=== PATIENT | male | born 1955 | race Caucasian/White ===

== ENCOUNTER 2025-08-22 17:02 | Inpatient (IN) | payer MEDICARE, SELFPAY ==
[2025-08-22] VITALS (13 sets, daily range): BP systolic 110–155; BP diastolic 47–95; PULSE 55–78; RESP 14–21; TEMP 36.5–37.2; O2SAT 94–99; BMI 28.5; BMI 163.2; BMI 27.6; BMI 26.9
--- NOTE | 2025-08-22 17:04 | ECG_ITS ---
APPROVED REPORT Exam: Resting ECG HR:66 bpm ECG Measurements Heart Rate 66 AXES MA 205 P 42 QRSd 110 QRS 4 QT 441 T 26 QTc 455 Conclusion Inferior STEMI with elevations in 3, aVF with reciprocal changes in aVL and ST depressions in V2 V3 Electronically signed by : Opal Girard, 08/23/2025 00:01:59
--- NOTE | 2025-08-22 17:04 | ECG_ITS ---
APPROVED REPORT Exam: Resting ECG HR:64 bpm ECG Measurements Heart Rate 64 AXES MS 202 P 44 QRSd 109 QRS 33 QT 439 T 28 QTc 448 Conclusion Inferior STEMI Electronically signed by : Opal Girard, 08/23/2025 00:01:30
--- NOTE | 2025-08-22 17:12 | XR_ITS ---
FINAL REPORT CLINICAL HISTORY: Nonspecific chest pain COMPARISON: None FINDINGS: CHEST 1 VIEW There is mild cardiomegaly. The mediastinum is normal. The lungs are underinflated. There is no focal infiltrate or edema. There are no pleural effusions. There is no pneumothorax. There is no osseous abnormality. IMPRESSION: No acute cardiopulmonary process Reviewed, Interpreted and Dictated by Yoni Aguillon MD Transcribed by Kacie Smyth Authenticated and [facility]
--- NOTE | 2025-08-22 17:12 | ED_ITS ---
Discharge Plan Disposition Patient Disposition: Admitted Clinical Impressions Clinical Impression: STEMI (ST elevation myocardial infarction) Discharge ED Provider: Opal Girard General Adult HPI General Chief complaint: Chest Pain Stated complaint: chest pain Time Seen by Provider: 08/22/25 17:05 History of Present Illness HPI narrative: Patient is a 70-year-old gentleman who came to the emergency department from home with chest pain that started at 2 PM. Patient states the pain is in the center of chest, nonradiating pressure-like. States that he took a half of a normal 324 aspirin this morning and took the other half when his chest pain started. Patient states that his chest pain is currently a 9 out of 10. Patient states that he has hypertension but denies any other associated symptoms. Patient denies any shortness of breath. Patient denies any abdominal pain nausea vomiting or diarrhea. Patient states that he has not had similar symptoms in the past. Patient states that his symptoms started while mowing the grass. Patient does not take any other blood thinners. Patient has no other medical problems. Related Data Allergies Allergy/AdvReac Type Severity Reaction Status Date / Time From [facility] Allergy Intermediate HIVES, Uncoded 09/23/17 14:39 INFLAMMATION PFSH [facility] Disclaimer: The information contained in this section may have been updated after the patient was seen, as this information can be updated by other users. Social History (Updated 08/22/25 @ 19:52 by Ana Maria Allen RN) Smoking Status: Former smoker alcohol intake: never substance use type: denies use current occupational status: retired Travel in the last 8 weeks?: [place] the [place] Have you lived/traveled outside US in past 30 days?: No Contact w/someone who lives/traveled outside US past 30 days?: No Exposure to someone with infectious disease in past 14 days?: No Do you have a fever (greater than 100.4 F or 38 C)?: No Have you tested positive for COVID-19?: No Exposed to someone with COVID-19 in past 14 days?: No Do you have a sore throat?: No Do you have a cough?: No Do you have any weakness?: No Are you experiencing any nausea/vomitting?: No Do you have any diarrhea?: No Are you experiencing any unusual bleeding?: No Do you have any muscle aches/pain?: No Do you have any abdominal pain?: No Are you experiencing loss of taste or smell?: No ROS Obtained: Yes All systems reviewed & no additional complaints except as documented and Yes Systems reviewed as appropriate & no additional complaints except as documented Physical Exam General General appearance: alert and in no apparent distress Head Head exam: atraumatic, normocephalic and normal inspection Eye Eye exam: Present normal appearance, PERRL and EOMI; Absent scleral icterus ENT ENT exam: Present normal exam and normal external ear exam Neck Neck exam: Present normal inspection and full ROM Chest Chest inspection: Present normal inspection and symmetric chest wall rise Respiratory Respiratory exam: Present normal lung sounds bilaterally; Absent respiratory distress or wheezes Cardiovascular Cardiovascular exam: Present regular rate, normal rhythm and normal heart sounds Abdominal Exam Abdominal exam: Present soft and distention; Absent tenderness, guarding or rebound Extremities Exam Extremities exam: Present normal inspection and full ROM Back Exam Back exam: Present normal inspection and full ROM Neurological Exam Neurological exam: Present alert and oriented X3 Psychiatric Psychiatric exam: Present normal affect and normal mood Skin Skin exam: Present warm and dry Medical Decision Making Medical Records Medical records reviewed: Yes I reviewed the patient's medical records. Screening: Per USPSTF and CDC recommendations, given the prevalence of disease in our region, it is our hospital?s policy to screen for HIV and viral Hepatitis for all patients aged 18 and over and those with ongoing risk factors. Frankie Inquiry Pt receiving controlled substance: No Vital Signs: 08/22/25 17:07 08/22/25 17:31 Temperature 98.1 F 98.1 F Temperature Source Oral Oral Pulse Rate 65 Pulse Rate [Left] 68 Respiratory Rate 21 20 Blood Pressure 155/95 H Blood Pressure [Right Arm] 155/95 H Blood Pressure Mean [Right Arm] 115 Blood Pressure Source Automatic Cuff Blood Pressure Source [Right Arm] Automatic Cuff Blood Pressure Position Sitting Blood Pressure Position [Right Arm] Sitting 02 Sat by Pulse Oximetry 99 Oxygen Delivery Method Room Air Room Air Lab Data Lab results reviewed: Yes I reviewed the patient's lab results. Lab Results 08/22/25 17:10: WBC 8.7, RBC 4.85, Hgb 15.1, Hct 41.7 L, MCV 86.0, MCH 31.1, M CHC 36.2 H, RDW 12.1, Plt Count 331, MPV 8.2, Neut % (Auto) 65.3, Lymph % (Auto) 27.2, Harris % (Auto) 5.3, Eos % (Auto) 1.4, Baso % (Auto) 0.6, Neut # (Auto) 5.7, Lymph # (Auto) 2.4, Harris # (Auto) 0.5, Eos # (Auto) 0.1, Baso # (Auto) 0.1, S odium 133 L, Potassium 3.7, Chloride 97 L, Carbon Dioxide 26, Anion Gap 13.7, BUN 11, Creatinine 0.90, Estimated Creat Clear -24 L, Estimated GFR 83, Est GFR ( Amer) 100, Glucose 142 H, Hemoglobin A1c 5.4, Calcium 8.8, Total Bilirubin 0.6, AST 33, ALT 23, Alkaline Phosphatase 81, Troponin I 0.08 H, Total Protein 7.3, Albumin 4.5, Globulin 2.8, Albumin/Globulin Ratio 1.6, Triglycerides 125, Cholesterol 163, LDL Cholesterol Direct 103.06, VLDL Cholesterol 25, HDL Cholesterol 45, Cholesterol/HDL Ratio 3.6 H, TSH 5.76 H, HCV Ab SHANON w/Rflx PCR Qn Negative, HIV Ag/Ab Combo Qual Negative 08/22/25 17:10 08/22/25 17:10 Orders (Tests/Meds): ED MEDICATIONS Generic Name Dose Route Start Last Admin Trade Name Freq PRN Reason Stop Dose Admin Acetaminophen 650 mg 08/22/25 17:21 Acetaminophen 325mg Tab PO 09/21/25 17:20 Q4HP PRN Fever or Mild Pain (1-3) Acetaminophen 650 mg 08/22/25 18:38 Acetaminophen 325mg Tab PO 09/21/25 18:37 Q4HP PRN Fever or Mild Pain (1-3) Hydrocodone Bitart/Acetaminophen 1 tab 08/22/25 17:21 Hydrocodone/Apap 5/325 Mg Tablet PO 09/21/25 17:20 Q4HP PRN Mild to Moderate Pain (1-6) Hydrocodone Bitart/Acetaminophen 1 tab 08/22/25 18:38 Hydrocodone/Apap 5/325 Mg Tablet PO 09/21/25 18:37 Q4HP PRN Moderate Pain (4-6) Hydrocodone Bitart/Acetaminophen 2 tab 08/22/25 18:38 Hydrocodone/Apap 5/325 Mg Tablet PO 09/21/25 18:37 Q4HP PRN Severe Pain (7-10) Aspirin 324 mg 08/22/25 17:12 08/22/25 19:52 Aspirin 81mg Chewable Tablet PO 08/22/25 17:13 Not Given ONCE ONE Aspirin 81 mg 08/23/25 09:00 Aspirin Ec 81mg Tablet PO 09/22/25 08:59 DAILY IOANA Atorvastatin Calcium 40 mg 08/22/25 21:00 08/22/25 21:02 Atorvastatin 40mg Tablet PO 09/21/25 20:59 40 mg HS IOANA Administration Enoxaparin Sodium 40 mg 08/23/25 09:00 Enoxaparin 40mg/0.4ml Syringe SUBCUT 09/22/25 08:59 DAILY IOANA Fentanyl Citrate 50 mcg 08/22/25 17:14 08/22/25 18:12 Fentanyl 100mcg/2ml Vial IV 08/23/25 05:15 100 mcg Q3MINP PRN Administration Sedation Fentanyl Citrate 25 mcg 08/22/25 17:14 Fentanyl 100mcg/2ml Vial IV 08/23/25 05:15 Q3MINP PRN Sedation Flumazenil 0.2 mg 08/22/25 17:14 Flumazenil 0.1mg/Ml 5ml Vial IV 08/23/25 05:15 NEEDED PRN Sedation Heparin Sodium (Porcine) 5,000 unit 08/22/25 17:14 08/22/25 18:11 Heparin 1,000 Units/Ml 10ml Vial (High Density Tal[employer] Coater Operator) IV 08/22/25 21:15 11,600 unit NEEDED PRN Administration Emergency Box Tax Clerk Heparin Sodium/Sodium Chloride 3,000 unit 08/22/25 17:14 08/22/25 18:11 Heparin 1,000 Units/500ml Ns (High Density Talc Coater Operator) IV 08/22/25 17:15 3,000 unit ONCE ONE Administration Hydralazine HCl 20 mg 08/22/25 17:14 Hydralazine 20mg/Ml Vial IV 08/22/25 21:15 ONCE PRN sbp>160 Sodium Chloride 1,000 mls @ 25 mls/hr 08/22/25 17:15 08/22/25 19:53 Sod Chlor 0.9% 1000ml Bag IV 09/21/25 17:14 Not Given .Q25H IOANA Adenosine 180 mg/ Sodium 90 mls @ 432 mls/hr 08/22/25 17:14 Chloride IV 08/22/25 21:15 ONCE PRN fractional flow reserve 180 MCG/KG/MIN Adenosine 90 mg/ Sodium 90 mls @ 864 mls/hr 08/22/25 17:14 Chloride IV 08/22/25 21:15 ONCE PRN fractional flow reserve 180 MCG/KG/MIN Sodium Chloride 500 mls @ 25 mls/hr 08/22/25 17:15 08/22/25 19:54 Sod Chloride 0.9% 500ml Bag IV 08/23/25 17:15 Not Given .Q20H IOANA Labetalol HCl 20 mg 08/22/25 17:14 Labetalol 20mg/4ml Syringe IV 08/22/25 21:15 ONCE PRN sbp>160 Lidocaine HCl 10 ml 08/22/25 17:14 08/22/25 18:10 Lidocaine 1% 10ml Mdv IJ 08/22/25 17:15 10 ml ONCE ONE Administration Lidocaine HCl 10 ml 08/22/25 17:14 08/22/25 19:53 Lidocaine 1% 5ml Pf Vial IJ 08/22/25 17:15 Not Given ONCE ONE Midazolam HCl 1 mg 08/22/25 17:14 Midazolam 2mg/2ml Vial IV 08/23/25 05:15 Q3MINP PRN Sedation Midazolam HCl 1 mg 08/22/25 17:14 08/22/25 18:12 Midazolam Hcl 1mg/Ml 5ml Vial IV 08/23/25 05:15 5 mg Q3MINP PRN Administration Sedation Miscellaneous 1 each 08/22/25 18:38 Consider Pt For Dual Antiplatelet Therapy At Discharge-Stent NOTAPPLIC 09/21/25 18:37 NEEDED PRN Reminder for s/p stent Morphine Sulfate 4 mg 08/22/25 17:14 08/22/25 19:53 Morphine 4mg/Ml Syringe IV 08/22/25 17:15 Not Given ONCE ONE Morphine Sulfate 4 mg 08/22/25 17:21 Morphine 4mg/Ml Syringe IV 09/21/25 17:20 Q4HP PRN Severe Pain (7-10) Naloxone HCl 0.4 mg 08/22/25 17:14 Naloxone 0.4mg/Ml Vial IV 08/23/25 05:15 Q5MINP PRN Decreased Respirations Nicotine 21 mg 08/22/25 17:21 Nicotine 21mg/24hr Patch TD 09/21/25 17:20 DAILYP PRN Nicotine Cravings Nitroglycerin 0.4 mg 08/22/25 17:12 Nitroglycerin 0.4mg Sl Tablet SL 08/22/25 19:12 Q5MINP PRN Chest Pain Nitroglycerin 800 mcg 08/22/25 17:14 08/22/25 18:10 Nitroglycerin 800mcg/8ml Syr (High Density [employer] Coater Operator) IA 08/22/25 21:15 800 mcg NEEDED PRN Administration Emergency Box Tax Clerk Nitroglycerin 0.4 mg 08/22/25 18:38 Nitroglycerin 0.4mg Sl Tablet SL 09/21/25 18:37 Q5MINP PRN Chest Pain Ondansetron HCl 4 mg 08/22/25 17:14 Ondansetron 4mg/2ml Vial IV 08/23/25 05:15 NEEDED PRN Nausea Ondansetron HCl 4 mg 08/22/25 17:21 Ondansetron 4mg/2ml Vial IV 09/21/25 17:20 Q8HP PRN Nausea Pantoprazole Sodium 40 mg 08/22/25 21:00 08/22/25 21:02 Pantoprazole 40mg Tablet PO 09/21/25 20:59 40 mg HS IOANA Administration Prasugrel 10 mg 08/23/25 09:00 Prasugrel 10mg Tab PO 09/22/25 08:59 DAILY IOANA Prasugrel 60 mg 08/22/25 18:40 08/22/25 18:41 Prasugrel 10mg Tab PO 08/22/25 18:41 60 mg ONCE ONE Administration Promethazine HCl 25 mg 08/22/25 17:14 Promethazine Hcl 25mg/Ml 1ml Vial IV 08/23/25 05:15 NEEDED PRN Nausea And Vomiting Protamine Sulfate 50 mg 08/22/25 17:14 Protamine Sulfate 50mg/5ml Vial (High Density Tal[employer] Coater Operator) IV 08/22/25 21:15 ONCE PRN act>200 Sodium Chloride 10 ml 08/22/25 17:12 Sodium Chloride 0.9% 10ml Flush Syringe IV 09/21/25 17:11 NEEDED PRN Maintain IV Site Sodium Chloride 25 ml 08/22/25 17:14 08/22/25 19:53 Sodium Chloride 0.9% 25ml Bag IV 08/22/25 17:15 Not Given ONCE ONE Verapamil HCl 2.5 mg 08/22/25 17:14 08/22/25 18:11 Verapamil 2.5mg/Ml 2ml Vial IV 08/22/25 17:15 2.5 mg ONCE ONE Administration ORDERS Category Date Time Status Consult to Cardiology [CONS] Stat Cons 08/22/25 17:12 Active XR chest portable Stat Exams 08/22/25 17:12 Taken Complete Blood Count Auto Diff AMLAB Lab 08/23/25 06:00 Ordered Complete Blood Count Auto Diff Stat Lab 08/22/25 17:10 Completed Comprehensive Metabolic Panel AMLAB Lab 08/23/25 06:00 Ordered Comprehensive Metabolic Panel Stat Lab 08/22/25 17:10 Completed HIV Combo Stat Lab 08/22/25 17:10 Completed Hemoglobin A1C Stat Lab 08/22/25 17:10 Completed Hepatitis C Ab Qual. W/ RFX Stat Lab 08/22/25 17:10 Completed Lipid Panel Stat Lab 08/22/25 17:10 Completed Magnesium AMLAB Lab 08/23/25 06:00 Ordered TSH [Thyroid Stimulating Hormone] Stat Lab 08/22/25 17:10 Completed Troponin I Q3H Lab 08/22/25 20:24 Received Troponin I Q3H Lab 08/22/25 23:15 Ordered Troponin I Stat Lab 08/22/25 17:10 Completed CA echo doppler complete Routine Y 08/22/25 17:22 Ordered Medical Decision Narrative: Patient is a 70-year-old male with a past medical history of hypertension who presented to the emergency department with concern for chest pain that started around 2 PM. Patient states that his pain is in the center of his chest, nonradiating. On arrival, patient was hemodynamically stable with unremarkable vital signs. Differential includes but not limited to: ACS/OH, pneumothorax, pleural effusion, unstable angina, pneumonia, amongst others. Patient arrived, EKG was handed to me which showed inferior STEMI with ST elevations in 3 aVF with reciprocal changes in aVL as well as ST depressions in V2 and V3. The High Density Talc Coater Operator was activated, labs were obtained. Patient had already taken a full 324 of aspirin prior to arrival therefore aspirin was not given. Chest x-ray was obtained which was reviewed and interpreted by myself and showed no acute focal saltation, pneumothorax, pleural effusion or other acute cardiopulmonary process Cardiology was consulted and patient was taken emergently up to the High Density Talc Coater Operator. Critical Care Critical Care Time Critical Care Time: Yes Attestation: On 08/22/25, the high probability of a clinically significant, sudden or life threatening deterioration of the following system(s) required my full and direct attention, intervention and personal management. The time I documented below is in addition to time spent performing reported procedures but includes the following listed in this critical care notation. Total Time Total Critical Care Time: 35
[2025-08-22 17:17] LABS: Hematocrit 41.7 % (42.0-52.0); Hemoglobin 15.1 g/dL (14.1-18.0); Immature Granulocytes % 0.2 %; Mean Corpuscular HGB Conc 36.2 g/dL (31.8-35.4); Mean Corpuscular Hemoglobin 31.1 pg (27.0-31.2); Mean Corpuscular Volume 86.0 fl (80-94); Nucleated Red Blood Cells % 0 %; Platelet Count 331 K/mm3 (142-424); Red Blood Count 4.85 M/mm3 (4.60-6.20); Red Cell Distribution Width-SD 38.0 fL; White Blood Count 8.7 K/mm3 (4.8-10.8)
--- NOTE | 2025-08-22 17:17 | IR_ITS ---
APPROVED REPORT Patient Location: Emergent Software Installation Engineer: WINTER Del Toro RT (R) PROCEDURES Left heart catheterization Left ventriculogram Selective coronary angiogram Mechanical thrombectomy through the proximal circumflex artery and mid circumflex artery Drug-eluting stent deployment to the proximal and mid dominant circumflex artery Drug-eluting stent deployment to the second obtuse marginal artery INDICATION Acute inferior lateral ST elevation myocardial infarction, Coronary artery disease Informed consent was obtained prior to the procedure. COMPLICATIONS None Estimated Blood Loss: Less than 10mls TECHNIQUE One percent lidocaine used to anesthetize the right anterior aspect of the wrist. The right radial artery was accessed via the Seldinger technique. A 6 Chinese sheath was placed in the right radial artery. 2.5 mg of Verapamil, 800 mcg of nitroglycerin, 1mg Lidocaine and 5000 U Heparin were given through the arterial sheath. The JL3 catheter was also used to perform left heart catheterization, left ventriculogram and selective coronary angiogram. At the end the diagnostic angiogram therapeutic heparin had already been administered and the guide catheter was placed in the left main artery followed by Choice PT extra-support wire placed distally in the circumflex artery. A [employer] ([employer] united) mechanical aspiration catheter was used to aspirate a large thrombus thereby restoring AMBREEN-3 flow. A 3.5 x 12 mm [place] frontier stent was placed in the ostial proximal segment and deployed at 20 kai. The wire was placed in the second obtuse marginal artery and a 2.5 x 20 mm balloon was used to predilate going into the second obtuse marginal artery and mid circumflex artery. Following this a 2.5 x 26 mm [place] frontier stent was placed in the second obtuse marginal artery extending back into the mid circumflex artery. A 3 mm x 26 mm Delvis frontier stent was placed distal to the 3.5 mm stent yet still overlapping and extending into the 2.5 mm stent and deployed at 20 kai. A 3.5 x 12 mm noncompliant balloon was deployed at 20 kai in the ostial proximal and midportion of the circumflex artery. AMBREEN 0 flow was present at the beginning of the procedure with AMBREEN-3 flow at the end of the procedure. At the end of procedure the apparatus was removed the sheath was removed and hemostasis was achieved using TR banding patient was transferred to the postop porting in stable condition ANGIOGRAPHIC RESULTS The left main artery Normal The left anterior descending artery Has proximal 20 to 30% stenosis with mid vessel 20% stenosis The circumflex artery Large dominant initially ostially occluded. Following revascularization the proximal circumflex artery was widely patent and gave rise to a large caliber first obtuse marginal artery. The first obtuse marginal artery had mid vessel 40% stenoses. Distal to the obtuse marginal artery the circumflex artery had 90% stenosis. Following revascularization the mid circumflex artery is widely patent and patent into a medium to large second obtuse marginal artery The right coronary artery Is nondominant yet still large and has an anterior anomalous takeoff and has a proximal 70% stenosis followed by mid vessel 70% stenosis The HERNANDEZ ventriculogram reveals Reduced at 40% The left ventricular end-diastolic pressure 25 mmHg IMPRESSION Acute inferolateral ST elevation myocardial infarction as described above Successful mechanical thrombectomy followed by drug-eluting stent deployment to the ostial proximal mid dominant circumflex artery with additional stenting into a large second obtuse marginal artery Persistent severe stenosis in the large right coronary artery with an anterior takeoff Reduced ejection fraction Elevated LVEDP PLAN 1. Effient and aspirin 2. LDL less than 55 to be achieved with high intensity statin 3. Maintain continuous telemetry for at least 48 hours 4. Official echocardiogram in the morning and usage of LifeVest if applicable 5. Patient will be brought back to the Pediatric Cardiologist in 2 to 4 weeks and undergo stenting of the right coronary artery. 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 Entresto once hemodynamically stable Electronically signed by : Roberto Pedroza MD 08/22/2025 18:18:53
--- NOTE | 2025-08-22 17:17 | PC.NURSE ---
STEMI alert called at 1709 per .
--- NOTE | 2025-08-22 17:18 | PC.NURSE ---
pt taken to ammunition assembly ii laborer
--- NOTE | 2025-08-22 17:21 | P.HP_ITS ---
History of Present Illness *Admission Date: 08/22/25 *Reason for visit:: chest pain, SOA *History of present illness: Mr. Rosales is a 70-year-old male with history of hypertension but no longer needing meds due to improvement in blood pressure after retiring. States he otherwise only takes a daily aspirin. Says approximately 2 PM this afternoon he developed onset of chest pressure, shortness of breath, pain in both his arms radiating down his arms. Became nauseous and developed flushing and felt really hot and sweaty. Came to the ER for evaluation where EKG obtained showed acute STEMI. Labs obtained but [facility] [employer] urgently activated. Taken to [facility] [employer] for intervention. Found to have occlusion of ostial circumflex. Received 3 stents. Medicine consulted for admission Reports improvement in chest pain after intervention. Stable on room air. Blood pressure doing better with systolics in the 120s to 140s. Family at bedside. [facility] Disclaimer: The information contained in this section may have been updated after the patient was seen, as this information can be updated by other users. Social History (Updated 08/22/25 @ 19:37 by Danny Alberts MD) Smoking Status: Former smoker alcohol intake: never substance use type: denies use current occupational status: retired Travel in the last 8 weeks?: Inside the [place] Review of Systems Review of Systems Review of systems (narrative): 14 point review of systems performed, pertinent positives and negatives as per HPI Meds Home Medications and Allergies New Prescriptions to Start Prescriptions: Allergies Allergy/AdvReac Type Severity Reaction Status Date / Time From BACTRIM DS Allergy Intermediate HIVES, Uncoded 09/23/17 14:39 INFLAMMATION Exam Data for Last 24 hours Vital signs and Labs for Last 24 Hours: Temp Pulse Resp BP Pulse Ox O2 Del Method 98.1 F 68 21 155/95 H 99 Room Air 08/22/25 17:07 08/22/25 17:07 08/22/25 17:07 08/22/25 17:07 08/22/25 17:07 08/22/25 17:07 I & O for Last 24 hours: Intake & Output 08/19/25 08/20/25 08/21/25 08/22/25 23:59 23:59 23:59 23:59 Weight 80 kg Constitutional Constitutional: no acute distress, average body habitus and cooperative *Routine HEENT Exam Head: Present normocephalic Eye: Present EOMI and PERRL ENT: Present mucous membranes moist *Routine Neck Exam Neck: Present supple; Absent lymphadenopathy *Routine Respiratory Exam Respiratory: Present CTA bilaterally *Routine Cardiovascular Exam Cardiovascular: Present RRR *Routine Abdominal Exam Abdominal: Present soft and normoactive bowel sounds; Absent tenderness *Routine Rectal Exam Rectal:: deferred *Routine Genitalia Exam Genitalia:: deferred *Routine Extremities Exam Extremities: Present edema (Trace in the ankles); Absent cyanosis or clubbing Comments: Compression bracelet on right wrist *Routine Skin Exam Skin: Present warm; Absent rash *Routine Neurological Exam Neurological: Present alert, oriented X3 and moving all extremities; Absent altered mental status Assessment and Plan *Assessment and plan (1) STEMI (ST elevation myocardial infarction): Status: Acute Category: Medical Code(s): I21.3 - ST elevation (STEMI) myocardial infarction of unspecified site Plan 1-year-old male with history of hypertension that is resolved after fdc. On no medications at this time. Presented with chest pain. Found to be having a STEMI. Was taken urgently to the [facility] [employer]. Discussed case with ER physician and cardiology. Patient found to have occluded circumflex. Stents placed in occlusion resolved. Necessitating inpatient care. Cardiology requested admission for monitoring for 48 hours after STEMI. I decided to admit to medicine with telemetry. Patient alert and oriented. Feeling better with no chest pain at this time. Problems addressed as follows: STEMI, type I Hyperlipidemia - Initial troponin 0.08. TSH 5.76. Cholesterol with LDL of 103, goal less than 55. - A1c normal at 5.4 - Kidney function normal with BUN 11, creatinine 0.9 - Repeat CBC, CMP, magnesium ordered for the morning - Initiated on aspirin 81 mg daily after 324 mg load in the ER, loaded with prasugrel 60, continue 10 mg daily. Initiate Lipitor 40 mg nightly - Blood pressure normal at this time, will obtain echocardiogram in the morning and consider GDMT pending heart function. - Cardiology consulted and assisting with care. Discussed case after heart cath, patient was found to have occluded circumflex. Clot was removed and 3 stents placed. EF looked normal on ventriculogram. - My review of EKG shows ST elevation in leads II and III with depressions in V2 through V4 Full code Cardiac diet Heparinized in [employer]; initiate Lovenox 40 mg subcu daily in the morning
[2025-08-22 17:57] LABS: Albumin Level 4.5 g/dl (3.5-5.0); Chloride 97 mmol/L (98-107)
[2025-08-22 17:58] LABS: Potassium 3.7 mmoL/L (3.5-5.1); Sodium 133 mmol/L (136-145)
[2025-08-22 18:00] LABS: Alanine Aminotransferase 23 U/L (12-78); Anion Gap 13.7 mEq/L (5-15); Aspartate Amino Transferase 33 U/L (17-59); Blood Urea Nitrogen 11 mg/dl (9-20); Carbon Dioxide 26 mmol/L (22.0-30.0); Creatinine Clearance Estimated -24 mL/min (50-200); Creatinine,Serum 0.90 mg/dl (0.66-1.25); Estimated Glomerular Filt Rate 83 ml/min (>60); GFR (African American) 100 ML/MIN (>60)
[2025-08-22 18:01] LABS: Albumin/Globulin Ratio 1.6 (1.1-1.8); Alkaline Phosphatase 81 U/L (38-126); Bilirubin,Total 0.6 mg/dl (0.2-1.3); Calcium 8.8 mg/dl (8.4-10.2); Cholesterol 163 mg/dl (140-200); Globulin 2.8 g/dL (1.3-3.2); Glucose 142 mg/dl (74-100); HDL Cholesterol 45 mg/dl (40-60); Total Protein,Serum 7.3 g/dl (6.3-8.2); Triglycerides 125 mg/dl (30-150)
[2025-08-22] MEDS: LIDOCAINE 1% 10ML MDV 10 ML IJ (18:10)
[2025-08-22] MEDS: NITROGLYCERIN 800MCG/8ML SYR (CATH LAB) 800 MCG IA (18:10)
[2025-08-22] MEDS: HEPARIN 1,000 UNITS/ML 10ML VIAL (CATH LAB) 5000 UNIT IV (18:11)
[2025-08-22] MEDS: VERAPAMIL 2.5MG/ML 2ML VIAL 2.5 MG IV (18:11)
[2025-08-22] MEDS: HEPARIN 1,000 UNITS/500ML NS (CATH LAB) 3000 UNIT IV (18:11)
[2025-08-22] MEDS: FENTANYL 100MCG/2ML VIAL 50 MCG IV (18:12)
[2025-08-22] MEDS: MIDAZOLAM HCL 1MG/ML 5ML VIAL 1 MG IV (18:12)
[2025-08-22 18:15] LABS: Troponin I 0.08 ng/ml (0.00-0.034)
--- NOTE | 2025-08-22 18:25 | PC.NURSE ---
arrived by deniser from carpenter/labor
[2025-08-22 18:31] LABS: Hemoglobin A1C 5.4 % (4.0-6.0); Thyroid Stimulating Hormone 5.76 uIU/mL (0.465-4.68)
[2025-08-22] MEDS: PRASUGREL 10MG TAB 60 MG PO (18:41)
[2025-08-22 18:51] LABS: Hepatitis C Ab Qual. W/ RFX NEGATIVE (Negative)
[2025-08-22] MEDS: ATORVASTATIN 40MG TABLET 40 MG PO (21:02)
[2025-08-22] MEDS: PANTOPRAZOLE 40MG TABLET 40 MG PO (21:02)
[2025-08-22 21:31] LABS: Troponin I 2.49 ng/ml (0.00-0.034)
--- NOTE | 2025-08-22 22:18 | PC.NURSE ---
Patient left floor with staff for ICU at 22:16.
[2025-08-22] MEDS: AMIODARONE HCL 150 MG in DEXTROSE 5 % IN WATER 100 ML 618 MG IV (22:29)
--- NOTE | 2025-08-22 22:33 | PC.NURSE ---
[facility] @22:20
[2025-08-22] MEDS: AMIODARONE HCL 900 MG in DEXTROSE 5 % IN WATER 500 ML 34.53 MG IV (22:45)
--- NOTE | 2025-08-22 23:18 | ECG_ITS ---
APPROVED REPORT Exam: Resting ECG HR:55 bpm ECG Measurements Heart Rate 55 AXES SD 269 P 246 QRSd 106 QRS -49 QT 462 T 90 QTc 450 Conclusion Normal Sinus rhythm INDETERMINATE AXIS NONSPECIFIC ST & T-WAVE ABNORMALITY ABNORMAL ECG UNCONFIRMED REPORT Electronically signed by : Jose Peraza MD 08/23/2025 15:06:31
--- NOTE | 2025-08-22 23:19 | PC.NURSE ---
While amio bolus was infusing @ 2235, pt had wide complex run on tele. Pt asymptomatic. Bolus rate decreased to 300 ml/hr. (Per Angelia PRINGLE, if pt has any issues with bolus, decrease rate). Bolus finished and maint. gtt started @2244. Shortly after, pts came out of room and stated pt had been having slight chest pain since medication was started. Hospitalist notified. States to contact Dr. Pedroza. Dr. Pedroza paged and called back. Notified of events/VS States most likely reperfusion pain. Order received for Dilaudid 1mg IV Q 30 min PRN chest pain.
[2025-08-23] VITALS (23 sets, daily range): BP systolic 101–133; BP diastolic 51–90; PULSE 50–72; RESP 11–23; TEMP 36.4–37; O2SAT 95–99; BMI 26.9
--- NOTE | 2025-08-23 00:28 | PC.NURSE ---
@2340 Pts HR dropped to 40's. Angelia PRINGLE in unit and saw pts HR. Verbal order given to stop amio gtt.
[2025-08-23] MEDS: FAMOTIDINE 20MG TABLET 20 MG PO (01:34)
--- NOTE | 2025-08-23 01:38 | PC.NURSE ---
pt c/o heart burn. states it is burning in his esophagus. states he has this same burning all of the time for which he takes pepcid. Pt informed that he did have protonix earlier in this shift. States that does not work for him. Pt requesting pepcid. Angelia RPINGLE notified.
[2025-08-23 05:41] LABS: Hematocrit 37.2 % (42.0-52.0); Immature Granulocytes % 0.4 %; Mean Corpuscular HGB Conc 35.8 g/dL (31.8-35.4); Mean Corpuscular Hemoglobin 30.8 pg (27.0-31.2); Mean Corpuscular Volume 86.1 fl (80-94); Nucleated Red Blood Cells % 0 %; Platelet Count 280 K/mm3 (142-424); Red Blood Count 4.32 M/mm3 (4.60-6.20); Red Cell Distribution Width-SD 38.5 fL; White Blood Count 8.5 K/mm3 (4.8-10.8)
[2025-08-23 05:50] LABS: Alanine Aminotransferase 26 U/L (12-78); Albumin Level 3.9 g/dl (3.5-5.0); Albumin/Globulin Ratio 1.8 (1.1-1.8); Alkaline Phosphatase 74 U/L (38-126); Anion Gap 9.4 mEq/L (5-15); Aspartate Amino Transferase 92 U/L (17-59); Bilirubin,Total 0.7 mg/dl (0.2-1.3); Blood Urea Nitrogen 10 mg/dl (9-20); Calcium 8.8 mg/dl (8.4-10.2); Carbon Dioxide 26 mmol/L (22.0-30.0); Chloride 98 mmol/L (98-107); Creatinine Clearance Estimated 85 mL/min (50-200); Creatinine,Serum 0.90 mg/dl (0.66-1.25); Estimated Glomerular Filt Rate 83 ml/min (>60); GFR (African American) 100 ML/MIN (>60); Globulin 2.2 g/dL (1.3-3.2); Glucose 115 mg/dl (74-100); Magnesium 2.6 mg/dl (1.6-2.3); Potassium 3.4 mmoL/L (3.5-5.1); Sodium 130 mmol/L (136-145); Total Protein,Serum 6.1 g/dl (6.3-8.2)
--- NOTE | 2025-08-23 05:56 | PC.NURSE ---
Notified Angelia PRINGLE of pts HR frequently dropping to the 40's while sleeping and awake, and pts BP being slightly low. (see VS) Pt asymptomatic. She spoke with Dr Pedroza about this. no new orders
[2025-08-23 06:49] LABS: Hemoglobin 13.3 g/dL (14.1-18.0)
--- NOTE | 2025-08-23 07:57 | P.PN_ITS ---
Subjective *Date: 08/23/25 *Time: 07:57 Interval history: Patient states he did well during the night. He denies any chest discomfort or shortness of breath. He was able to sleep a little. He did eat breakfast without any problems. Nursing states he had a run of V. tach?. He was briefly on an amiodarone drip which caused chest discomfort and it was discontinued. He has remained in sinus bradycardia. Cardiac cath results completed 08/22/2025 as follows: IMPRESSION Acute inferolateral ST elevation myocardial infarction as described above Successful mechanical thrombectomy followed by drug-eluting stent deployment to the ostial proximal mid dominant circumflex artery with additional stenting into a large second obtuse marginal artery Persistent severe stenosis in the large right coronary artery with an anterior takeoff Reduced ejection fraction Elevated LVEDP PLAN 1. Effient and aspirin 2. LDL less than 55 to be achieved with high intensity statin 3. Maintain continuous telemetry for at least 48 hours 4. Official echocardiogram in the morning and usage of LifeVest if applicable 5. Patient will be brought back to the [facility] in 2 to 4 weeks and undergo stenting of the right coronary artery. 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 Entresto once hemodynamically stable To note also patient has done well at home. He was scheduled for an office visit today in [facility] for checkup. He has not been in the office for several years due to the fact that he has been very healthy and felt good.. He states his blood pressure normalized after retiring from [facility] at which time he stopped taking blood pressure medicine. He lost weight after COVID. He walks about a mile a day without issues. Exam Data for Last 24 hours Vital signs and Labs for Last 24 Hours: Temp Pulse Resp BP Pulse Ox O2 Del Method 98.6 F 53 L 13 113/69 96 Room Air 08/23/25 00:00 08/23/25 07:01 08/23/25 07:01 08/23/25 07:01 08/23/25 07:01 08/23/25 07:01 Laboratory Results - last 24 hr 08/22/25 17:10: WBC 8.7, RBC 4.85, Hgb 15.1, Hct 41.7 L, MCV 86.0, MCH 31.1, MCHC 36.2 H, RDW 12.1, Plt Count 331, MPV 8.2, Neut % (Auto) 65.3, Lymph % (Auto) 27.2, Stevens % (Auto) 5.3, Eos % (Auto) 1.4, Baso % (Auto) 0.6, Neut # (Auto) 5.7, Lymph # (Auto) 2.4, Stevens # (Auto) 0.5, Eos # (Auto) 0.1, Baso # (Auto) 0.1, Sodium 133 L, Potassium 3.7, Chloride 97 L, Carbon Dioxide 26, Anion Gap 13.7, BUN 11, Creatinine 0.90, Estimated Creat Clear -24 L, Estimated GFR 83, Est GFR ( Amer) 100, Glucose 142 H, Hemoglobin A1c 5.4, Calcium 8.8, Total Bilirubin 0.6, AST 33, ALT 23, Alkaline Phosphatase 81, Troponin I 0.08 H, Total Protein 7.3, Albumin 4.5, Globulin 2.8, Albumin/Globulin Ratio 1.6, Triglycerides 125, Cholesterol 163, LDL Cholesterol Direct 103.06, VLDL Cholesterol 25, HDL Cholesterol 45, Cholesterol/HDL Ratio 3.6 H, TSH 5.76 H, HCV Ab SHANON w/Rflx PCR Qn Negative, HIV Ag/Ab Combo Qual Negative 08/22/25 20:24: Troponin I 2.49 H 08/23/25 04:55: WBC 8.5, RBC 4.32 L, Hgb 13.3 L D, Hct 37.2 L, MCV 86.1, MCH 30.8, MCHC 35.8 H, RDW 12.2, Plt Count 280, MPV 8.7, Neut % (Auto) 66.8, Lymph % (Auto) 23.4, Stevens % (Auto) 7.3, Eos % (Auto) 1.5, Baso % (Auto) 0.6, Neut # (Auto) 5.7, Lymph # (Auto) 2.0, Stevens # (Auto) 0.6, Eos # (Auto) 0.1, Baso # (Auto) 0.1, Sodium 130 L, Potassium 3.4 L, Chloride 98, Carbon Dioxide 26, Anion Gap 9.4, BUN 10, Creatinine 0.90, Estimated Creat Clear 85, Estimated GFR 83, Est GFR ( Amer) 100, Glucose 115 H, Calcium 8.8, Magnesium 2.6 H, Total Bilirubin 0.7, AST 92 H D, ALT 26, Alkaline Phosphatase 74, Total Protein 6.1 L, Albumin 3.9 D, Globulin 2.2, Albumin/Globulin Ratio 1.8 I & O for Last 24 hours: Intake & Output 08/20/25 08/21/25 08/22/25 08/23/25 11:59 11:59 11:59 11:59 Intake Total 411.031 / 411.031 Output Total 200 / 200 Balance 211.031 / 211.031 Weight 199 lb 0.004 oz Constitutional Constitutional: no acute distress Comments: Sitting up in the bed and appears comfortable. is at bedside. *Routine Respiratory Exam Respiratory: Present CTA bilaterally (Anteriorly and posteriorly) *Routine Cardiovascular Exam Cardiovascular: Present RRR (Monitor showing sinus bradycardia in the 50s and sometimes low 60s) *Routine Abdominal Exam Abdominal: Present soft and normoactive bowel sounds; Absent tenderness or distended *Routine Extremities Exam Extremities: Present pulses intact; Absent edema or calf tenderness *Routine Neurological Exam Neurological: Present alert and oriented X3 Assessment and Plan *Assessment and plan (1) STEMI (ST elevation myocardial infarction): Status: Acute Category: Medical Code(s): I21.3 - ST elevation (STEMI) myocardial infarction of unspecified site (2) Hypokalemia: Status: Acute Category: Medical Code(s): E87.6 - Hypokalemia (3) Hypothyroidism: Status: Acute Category: Medical Code(s): E03.9 - Hypothyroidism, unspecified (4) Stented coronary artery: Status: Acute Category: Surgical Code(s): Z95.5 - Presence of coronary angioplasty implant and graft (5) Cardiac dysrhythmia: Status: Acute Category: Medical Code(s): I49.9 - Cardiac arrhythmia, unspecified Plan Echocardiogram was completed this morning. With pending results. Cardiology will see patient as well. Blood chemistries do show potassium of 3.4 with a low sodium of 130. Will add p.o. potassium to medicines. TSH is also noted to be slightly elevated at 5.76. Will start low-dose of levothyroxine. Also to note cholesterol profile: LDL is 103.06 with triglycerides of 125 and HDL of 45. A1c was 5.4 on admission.
[2025-08-23] MEDS: IOPAMIDOL-370 (76%);100ML BOTTLE 160 ML IV (08:15)
[2025-08-23] MEDS: LEVOTHYROXINE 25MCG (0.025MG) TAB 25 MCG PO (08:55)
[2025-08-23] MEDS: PRASUGREL 10MG TAB 10 MG PO (08:56)
[2025-08-23] MEDS: ASPIRIN EC 81MG TABLET 81 MG PO (08:56)
[2025-08-23] MEDS: POTASSIUM CHLORIDE 20MEQ TAB 20 MEQ PO ×3 (08:56→20:52)
--- NOTE | 2025-08-23 11:09 | EXP.CARD.CON ---
History of Present Illness History of Present Illness Consult date: 08/23/25 Requesting physician: Pia Allen Chief complaint: Chest pain, STEMI History of present illness: Papito Rosales is a 70-year-old white male who presented to emergency department yesterday with a STEMI. Patient reports he was at home and developed midsternal chest pressure, shortness of breath and pain radiating to both arms. He also became nauseated and diaphoretic. Patient was brought to the emergency department and went directly to the [facility] Design Engineer for STEMI. Patient was found to have occlusion of the ostial circumflex and received 3 drug-eluting stents. This morning patient is resting comfortably and denies any further episodes of chest pain or shortness of breath. Echo is pending. [facility] Disclaimer: The information contained in this section may have been updated after the patient was seen, as this information can be updated by other users. Social History (Updated 08/22/25 @ 19:52 by Ana Maria Allen RN) Smoking Status: Former smoker alcohol intake: never substance use type: denies use current occupational status: retired Travel in the last 8 weeks?: Inside the [place] Have you lived/traveled outside US in past 30 days?: No Contact w/someone who lives/traveled outside US past 30 days?: No Exposure to someone with infectious disease in past 14 days?: No Do you have a fever (greater than 100.4 F or 38 C)?: No Have you tested positive for COVID-19?: No Exposed to someone with COVID-19 in past 14 days?: No Do you have a sore throat?: No Do you have a cough?: No Do you have any weakness?: No Are you experiencing any nausea/vomitting?: No Do you have any diarrhea?: No Are you experiencing any unusual bleeding?: No Do you have any muscle aches/pain?: No Do you have any abdominal pain?: No Are you experiencing loss of taste or smell?: No Review of Systems Review of Systems Review of systems:: pertinent systems reviewed and negative unless documented below Constitutional Constitutional: Reports system reviewed and no additional complaints, except as documented *Cardiovascular Cardiovascular: Reports system reviewed and no additional complaints, except as documented and Reports chest pain *Respiratory Respiratory: Reports system reviewed and no additional complaints, except as documented *Gastrointestinal Gastrointestinal: Reports system reviewed and no additional complaints, except as documented *Neurologic Neurologic: Reports system reviewed and no additional complaints, except as documented and Denies confusion Psychiatric Psychiatric: Reports system reviewed and no additional complaints, except as documented and Denies confusion Exam Data for Last 24 hours Vital signs and Labs for Last 24 Hours: Temp Pulse Resp BP Pulse Ox O2 Del Method 97.6 F 58 L 12 112/71 98 Room Air 08/23/25 08:00 08/23/25 10:00 08/23/25 10:00 08/23/25 10:00 08/23/25 10:00 08/23/25 10:00 Laboratory Results - last 24 hr 08/22/25 17:10: WBC 8.7, RBC 4.85, Hgb 15.1, Hct 41.7 L, MCV 86.0, MCH 31.1, MCHC 36.2 H, RDW 12.1, Plt Count 331, MPV 8.2, Neut % (Auto) 65.3, Lymph % (Auto) 27.2, [place] % (Auto) 5.3, Eos % (Auto) 1.4, Baso % (Auto) 0.6, Neut # (Auto) 5.7, Lymph # (Auto) 2.4, [place] # (Auto) 0.5, Eos # (Auto) 0.1, Baso # (Auto) 0.1, Sodium 133 L, Potassium 3.7, Chloride 97 L, Carbon Dioxide 26, Anion Gap 13.7, BUN 11, Creatinine 0.90, Estimated Creat Clear -24 L, Estimated GFR 83, Est GFR ( Amer) 100, Glucose 142 H, Hemoglobin A1c 5.4, Calcium 8.8, Total Bilirubin 0.6, AST 33, ALT 23, Alkaline Phosphatase 81, Troponin I 0.08 H, Total Protein 7.3, Albumin 4.5, Globulin 2.8, Albumin/Globulin Ratio 1.6, Triglycerides 125, Cholesterol 163, LDL Cholesterol Direct 103.06, VLDL Cholesterol 25, HDL Cholesterol 45, Cholesterol/HDL Ratio 3.6 H, TSH 5.76 H, HCV Ab SHANON w/Rflx PCR Qn Negative, HIV Ag/Ab Combo Qual Negative 08/22/25 20:24: Troponin I 2.49 H 08/23/25 04:55: WBC 8.5, RBC 4.32 L, Hgb 13.3 L D, Hct 37.2 L, MCV 86.1, MCH 30.8, MCHC 35.8 H, RDW 12.2, Plt Count 280, MPV 8.7, Neut % (Auto) 66.8, Lymph % (Auto) 23.4, [place] % (Auto) 7.3, Eos % (Auto) 1.5, Baso % (Auto) 0.6, Neut # (Auto) 5.7, Lymph # (Auto) 2.0, [place] # (Auto) 0.6, Eos # (Auto) 0.1, Baso # (Auto) 0.1, Sodium 130 L, Potassium 3.4 L, Chloride 98, Carbon Dioxide 26, Anion Gap 9.4, BUN 10, Creatinine 0.90, Estimated Creat Clear 85, Estimated GFR 83, Est GFR ( Amer) 100, Glucose 115 H, Calcium 8.8, Magnesium 2.6 H, Total Bilirubin 0.7, AST 92 H D, ALT 26, Alkaline Phosphatase 74, Total Protein 6.1 L, Albumin 3.9 D, Globulin 2.2, Albumin/Globulin Ratio 1.8 I & O for Last 24 hours: Intake & Output 08/20/25 08/21/25 08/22/25 08/23/25 23:59 23:59 23:59 23:59 Intake Total 103.0 / 103.0 308.031 / 308.031 Output Total 500 / 500 Balance 103.0 / 103.0 -191.969 / -191.969 Weight 199 lb 198 lb 3 oz Constitutional Constitutional: no acute distress *Routine Respiratory Exam Respiratory: Present CTA bilaterally and symmetric chest movement *Routine Cardiovascular Exam Cardiovascular: Present RRR, Normal S1 and Normal S2 *Routine Abdominal Exam Abdominal: Present soft and normoactive bowel sounds; Absent tenderness *Routine Extremities Exam Extremities: Present full ROM and normal capillary refill; Absent edema *Routine Skin Exam Skin: Present intact, dry and warm Detailed Neck Exam: Thyroids Thyroid: Absent bruit Meds Home Medications and Allergies Home Medications ?Medication ?Instructions ?Recorded ?Confirmed ?Type aspirin 81 mg tablet 81 mg PO DAILY 08/23/25 08/23/25 History New Prescriptions to Start Prescriptions: Allergies Allergy/AdvReac Type Severity Reaction Status Date / Time sulfamethoxazole (From Allergy Hives Verified 08/23/25 07:27 Bactrim) trimethoprim (From Bactrim) Allergy Hives Verified 08/23/25 07:27 Assessment and Plan *Assessment and plan (1) Stented coronary artery: Status: Acute Category: Surgical Code(s): Z95.5 - Presence of coronary angioplasty implant and graft (2) STEMI (ST elevation myocardial infarction): Status: Acute Category: Medical Code(s): I21.3 - ST elevation (STEMI) myocardial infarction of unspecified site Plan Coronary artery disease Status post STEMI Status post thrombectomy and 3 TRESA to ostial proximal mid dominant circumflex artery with additional stenting into a large second obtuse marginal artery. Persistent severe stenosis in large right coronary artery is present. Patient will need to return to the [facility] Design [facility] in 2 to 4 weeks and undergo stenting of the right coronary artery. Echo pending Continue DAPT therapy with Effient and aspirin LDL goal less than 55, LDL is 103. Start high-dose statin A1c is 5.4 Patient is a non-smoker CV summary 08/23/2025: Patient will need to be monitored for 48 hours status post STEMI. Echo is pending. Patient can be moved to [facility] with telemetry after echo report.
--- NOTE | 2025-08-23 15:00 | PC.NURSE ---
Caty Olmedo states patient can be Medical Surgical status with Tele. Continuation of care plan.
--- NOTE | 2025-08-23 15:50 | PC.NURSE ---
pastry supervisor, Seema, states she spoke with Dr. Allen and states he said the patient may be Medical Surgical status with Tele. Continuation of care plan.
--- NOTE | 2025-08-23 17:22 | CA_ITS ---
APPROVED REPORT EXAM: Comprehensive 2D, Doppler, and color-flow Echocardiogram Automotive Assembler: Virginie Perez CRT Ht: 6 ft 0 in Wt: 195lbs BSA: 2.11 BP: 155/95 mmHg Indications: Chest Pain, Shortness of Breath, STEMI, 3 stents thrombectomy 2D Dimensions LA Volume 58.70 mL LA Volume Index 27.20 mL/m2 (M/F) 16-34 M-Mode Dimensions RVDd 2.15 cm (0.9-2.6) LA Diam 4.76 cm (1.9-4.0) LVDd 5.06 cm (3.5-5.7) LVDs 3.25 cm (3.5-5.7) IVSd 1.52 cm (0.6-1.1) PWd 0.70 cm (0.6-1.1) EF (Teich) 65.00% FS 35.80% EDV (Teich) 121.60 mL ESV (Teich) 42.50 mL LV Diastology E Decel Time 190 (160-240 msec) E/A Ratio 0.89 MED A' 14.30 cm/s LAT A' 10.00 cm/s Aortic Valve AO Peak GR. 4.80 mmHg Mitral Valve MV E Max Yunior. 73.0 (40-130 cm/s) MV A Velocity 82.0 (40-130 cm/s) E/A Ratio 0.89 MV PHT 56.0 ms Pulmonary Valve PV Peak Velocity 139.0 (50-150 cm/s) Tricuspid Valve TR P. Velocity 242.00 cm/s RAP Estimate 10.00 mmHg RVSP 33.40 mmHg Left Ventricle The left ventricle is normal size. Left ventricular systolic function is normal. The left ventricular ejection fraction is within the normal range. There is increased left ventricular wall thickness. There is normal LV segmental wall motion. The left ventricular diastolic function is normal. LVEF is 60% Right Ventricle The right ventricle is mildly dilated. The right ventricular systolic function is normal. Atria Left atrium is mildly dilated. Right atrium is mildly dilated. There is no color Doppler evidence of interatrial shunt. Aortic Valve The aortic valve is mildly thickened. There is no hemodynamically significant aortic valvular stenosis. No aortic regurgitation is present. Mitral Valve The mitral valve is normal in structure. No evidence of mitral valve stenosis. Mild mitral regurgitation is present. Tricuspid Valve The tricuspid valve leaflets are thin and pliable. Mild tricuspid regurgitation. RVSP is 20-25 mmHg. Pulmonic Valve The pulmonary valve is grossly normal in structure. Trace pulmonic valve regurgitation is present. Great Vessels The aortic root is normal in size. IVC is normal in size and collapses >50% with inspiration. Pericardium There is no pericardial effusion. Other Information Study Quality: Fair Conclusion Normal biventricular systolic function. Mild RV dilation. Mild biatrial dilation. Mild MR, mild TR. Electronically signed by : Stephanie Guallpa MD 08/23/2025 11:51:08
--- NOTE | 2025-08-23 17:51 | PC.NURSE ---
Report given to GREGORY Manriquez.
--- NOTE | 2025-08-23 17:55 | PC.NURSE ---
Patient transported to Medical Surgical Room 214 via wheelchair by Medical Surgical SRNA.
--- NOTE | 2025-08-23 17:57 | PC.NURSE ---
arrived by w/c from ICU
[2025-08-23] MEDS: PANTOPRAZOLE 40MG TABLET 40 MG PO (20:52)
[2025-08-23] MEDS: ATORVASTATIN 40MG TABLET 40 MG PO (20:52)
[2025-08-24] VITALS: BP 124/71; PULSE 60; PULSE 63; RESP 18; TEMP 36.8; O2SAT 96
[2025-08-24 04:00] VITALS: BP 112/75; PULSE 63; PULSE 70; RESP 15; TEMP 36.6; O2SAT 95; BMI 27.3
--- NOTE | 2025-08-24 04:00 | PC.NURSE ---
Patient is pleasantly alert and oriented x4. He was observed to be resting in bed with eyes closed, respirations even and unlabored on room air, and no apparent distress throughout the majority of the night. His has remained at bedside. Patient has not had any complaints of chest pain, general or localized pain, shortness of breath, dizziness, nausea, etc. this shift. Upon assessment, he stated that he feels much better. Right radial cath site was assessed; dressing remains clean, dry, and intact. Patient denies any pain surrounding the cath site. On continuous cardiac monitoring. Physical assessment was performed appropriately (see nursing shift biophysical intervention) for this shift. Scheduled medications were administered per DEC. He ambulates independently in his room/to the bathroom without difficulties. Vital signs stable. At this time, the patient remains resting in bed without any new needs vocalized. No acute changes noted thus far. Call light within reach.
[2025-08-24] MEDS: LEVOTHYROXINE 25MCG (0.025MG) TAB 25 MCG PO (06:32)
[2025-08-24 08:00] VITALS: BP 129/68; PULSE 69; PULSE 80; RESP 16; TEMP 36.6; O2SAT 99
--- NOTE | 2025-08-24 08:23 | EXP.ACUTE.PN ---
Subjective *Date: 08/24/25 *Time: 08:23 Interval history: Patient is feeling better today. He denies any chest pain or SOA. He slept off and on. He is eating breakfast this am. Medical Exam Vital signs and Labs for Last 24 Hours: Vital Signs Temp Pulse Pulse Resp BP BP Pulse Ox 08/24/25 08:00 98 F 69 16 129/68 99 08/24/25 08:00 08/24/25 06:55 08/24/25 05:00 08/24/25 04:00 70 08/24/25 04:00 97.9 F 63 15 112/75 95 08/24/25 03:00 08/24/25 01:00 08/24/25 00:00 60 08/24/25 00:00 98.2 F 63 18 124/71 96 08/23/25 23:00 08/23/25 21:00 08/23/25 20:00 60 08/23/25 20:00 08/23/25 19:58 98.3 F 62 16 125/74 98 08/23/25 18:40 08/23/25 18:00 97.9 F 72 18 133/68 95 08/23/25 17:00 08/23/25 16:00 60 08/23/25 16:00 98.2 F 62 18 122/90 99 08/23/25 15:00 56 L 21 125/69 97 08/23/25 15:00 08/23/25 14:00 51 L 19 110/68 95 08/23/25 13:00 60 23 122/64 98 08/23/25 12:44 08/23/25 12:00 54 L 08/23/25 12:00 97.7 F 50 L 16 111/55 L 97 08/23/25 12:00 98 08/23/25 11:00 59 L 15 117/61 97 08/23/25 11:00 08/23/25 10:00 58 L 12 112/71 98 08/23/25 09:01 64 16 114/61 95 08/23/25 09:00 O2 Del Method 08/24/25 08:00 Room Air 08/24/25 08:00 Room Air 08/24/25 06:55 Room Air 08/24/25 05:00 Room Air 08/24/25 04:00 08/24/25 04:00 Room Air 08/24/25 03:00 Room Air 08/24/25 01:00 Room Air 08/24/25 00:00 08/24/25 00:00 Room Air 08/23/25 23:00 Room Air 08/23/25 21:00 Room Air 08/23/25 20:00 08/23/25 20:00 Room Air 08/23/25 19:58 Room Air 08/23/25 18:40 Room Air 08/23/25 18:00 Room Air 08/23/25 17:00 Room Air 08/23/25 16:00 08/23/25 16:00 Room Air 08/23/25 15:00 Room Air 08/23/25 15:00 Room Air 08/23/25 14:00 Room Air 08/23/25 13:00 Room Air 08/23/25 12:44 Room Air 08/23/25 12:00 08/23/25 12:00 Room Air 08/23/25 12:00 Room Air 08/23/25 11:00 Room Air 08/23/25 11:00 Room Air 08/23/25 10:00 Room Air 08/23/25 09:01 Room Air 08/23/25 09:00 Room Air Intake and Output 08/23/25 08/24/25 08/24/25 19:59 03:59 11:59 Intake Total 560 / 760 200 / 760 Output Total 250 / 250 0 / 250 Balance 310 / 510 200 / 510 0 / 510 Intake: Intake, Oral Amount 560 / 760 200 / 760 Output: Output, Urine Amount 250 / 250 0 / 250 Other: Number of Unmeasured Voids 1 2 Weight 202 lb Patient Weight 08/24/25 11:59 Weight 202 lb I & O for Labs for Last 24 Hours: Intake & Output 08/21/25 08/22/25 08/23/25 08/24/25 11:59 11:59 11:59 11:59 Intake Total 411.031 / 411.031 760 / 760 Output Total 500 / 500 250 / 250 Balance -88.969 / -88.969 510 / 510 Weight 198 lb 3 oz 202 lb Constitutional: Present no acute distress Respiratory: Present CTA bilaterally Cardiac: Present Reg Rate and Rhythm GI: Present soft; Absent distention or tenderness Extremities: Absent edema Skin: Present intact Neuro: Present alert, awake and oriented x 3 Assessment and Plan *Assessment and plan (1) STEMI (ST elevation myocardial infarction): Status: Acute Category: Medical Code(s): I21.3 - ST elevation (STEMI) myocardial infarction of unspecified site (2) Hypokalemia: Status: Acute Category: Medical Code(s): E87.6 - Hypokalemia (3) Hypothyroidism: Status: Acute Category: Medical Code(s): E03.9 - Hypothyroidism, unspecified (4) Stented coronary artery: Status: Acute Category: Surgical Code(s): Z95.5 - Presence of coronary angioplasty implant and graft (5) Cardiac dysrhythmia: Status: Acute Category: Medical Code(s): I49.9 - Cardiac arrhythmia, unspecified Plan Echocardiogram : Normal biventricular systolic function. Mild RV dilation. Mild biatrial dilation. Mild MR, mild TR. Will recheck labs this am. Can likely be discharged if labs have improved.
[2025-08-24] MEDS: PRASUGREL 10MG TAB 10 MG PO (08:30)
[2025-08-24] MEDS: ASPIRIN EC 81MG TABLET 81 MG PO (08:30)
[2025-08-24] MEDS: POTASSIUM CHLORIDE 20MEQ TAB 20 MEQ PO (08:30)
[2025-08-24 09:01] LABS: Hematocrit 42.2 % (42.0-52.0); Hemoglobin 15.0 g/dL (14.1-18.0); Immature Granulocytes % 0.3 %; Mean Corpuscular HGB Conc 35.5 g/dL (31.8-35.4); Mean Corpuscular Hemoglobin 31.3 pg (27.0-31.2); Mean Corpuscular Volume 88.1 fl (80-94); Nucleated Red Blood Cells % 0 %; Platelet Count 318 K/mm3 (142-424); Red Blood Count 4.79 M/mm3 (4.60-6.20); Red Cell Distribution Width-SD 40.2 fL; White Blood Count 7.7 K/mm3 (4.8-10.8)
[2025-08-24 09:13] LABS: Alanine Aminotransferase 30 U/L (12-78); Albumin Level 4.6 g/dl (3.5-5.0); Albumin/Globulin Ratio 2.0 (1.1-1.8); Alkaline Phosphatase 79 U/L (38-126); Anion Gap 10.8 mEq/L (5-15); Aspartate Amino Transferase 80 U/L (17-59); Bilirubin,Total 0.9 mg/dl (0.2-1.3); Blood Urea Nitrogen 10 mg/dl (9-20); Calcium 9.5 mg/dl (8.4-10.2); Carbon Dioxide 27 mmol/L (22.0-30.0); Chloride 98 mmol/L (98-107); Creatinine Clearance Estimated 79 mL/min (50-200); Creatinine,Serum 1.10 mg/dl (0.66-1.25); Estimated Glomerular Filt Rate 66 ml/min (>60); GFR (African American) 80 ML/MIN (>60); Globulin 2.3 g/dL (1.3-3.2); Glucose 173 mg/dl (74-100); Potassium 3.8 mmoL/L (3.5-5.1); Sodium 132 mmol/L (136-145); Total Protein,Serum 6.9 g/dl (6.3-8.2)
--- NOTE | 2025-08-24 10:02 | EXP.CARD.PN ---
Subjective Subjective Date: 08/24/25 Time: 08:00 Principal diagnosis: STEMI Interval history: Patient reports he is feeling well this morning. Denies any chest pain or shortness of breath. No events noted throughout the evening. Morning labs reviewed. Exam Data for Last 24 hours Vital signs and Labs for Last 24 Hours: Temp Pulse Resp BP Pulse Ox O2 Del Method O2 Flow Rate 98 F 69 16 129/68 99 Room Air 3 08/24/25 08:00 08/24/25 08:00 08/24/25 08:00 08/24/25 08:00 08/24/25 08:00 08/24/25 08:00 08/23/25 13:00 Laboratory Results - last 24 hr 08/24/25 08:47: WBC 7.7, RBC 4.79, Hgb 15.0, Hct 42.2, MCV 88.1, MCH 31.3 H, MCHC 35.5 H, RDW 12.5, Plt Count 318, MPV 8.4, Neut % (Auto) 68.7, Lymph % (Auto) 24.1, [place] % (Auto) 4.8, Eos % (Auto) 1.6, Baso % (Auto) 0.5, Neut # (Auto) 5.3, Lymph # (Auto) 1.9, [place] # (Auto) 0.4, Eos # (Auto) 0.1, Baso # (Auto) 0.0, Sodium 132 L, Potassium 3.8, Chloride 98, Carbon Dioxide 27, Anion Gap 10.8, BUN 10, Creatinine 1.10 D, Estimated Creat Clear 79, Estimated GFR 66, Est GFR ( Amer) 80, Glucose 173 H, Calcium 9.5, Total Bilirubin 0.9, AST 80 H, ALT 30, Alkaline Phosphatase 79, Total Protein 6.9, Albumin 4.6 D, Globulin 2.3, Albumin/Globulin Ratio 2.0 H I & O for Last 24 hours: Intake & Output 08/21/25 08/22/25 08/23/25 08/24/25 23:59 23:59 23:59 23:59 Intake Total 103.0 / 103.0 868.031 / 1068.031 400 / 400 Output Total 750 / 750 0 / 0 Balance 103.0 / 103.0 118.031 / 318.031 400 / 400 Weight 199 lb 198 lb 3 oz 202 lb Constitutional Constitutional: no acute distress *Routine Respiratory Exam Respiratory: Present CTA bilaterally and symmetric chest movement *Routine Cardiovascular Exam Cardiovascular: Present RRR, Normal S1 and Normal S2 *Routine Abdominal Exam Abdominal: Present soft and normoactive bowel sounds; Absent tenderness *Routine Extremities Exam Extremities: Present full ROM and normal capillary refill; Absent edema Comments: Right radial cath site-dressing dry and intact. No obvious swelling or bleeding noted. *Routine Skin Exam Skin: Present intact, dry and warm Detailed Neck Exam: Thyroids Thyroid: Absent bruit Progress Note: A&P Assessment and plan (1) STEMI (ST elevation myocardial infarction): Status: Acute (2) Hypokalemia: Status: Acute (3) Hypothyroidism: Status: Acute (4) Stented coronary artery: Status: Acute (5) Cardiac dysrhythmia: Status: Acute Assessment and Plan Assessment and Plan for All Diagnoses:: Coronary artery disease Status post STEMI Status post thrombectomy and 3 TRESA to ostial proximal mid dominant circumflex artery with additional stenting into a large second obtuse marginal artery. Persistent severe stenosis in large right coronary artery is present. Patient will need to return to the [facility] in 2 to 4 weeks and undergo stenting of the right coronary artery. Echo shows a normal ejection fraction Continue DAPT therapy with Effient and aspirin LDL goal less than 55, LDL is 103. Start high-dose statin A1c is 5.4 Patient is a non-smoker CV summary 08/24/2025: Patient is CV stable for discharge home this afternoon. Please continue below listed medications and have patient follow-up in cardiology clinic next week for reevaluation. Patient will need to return to the [facility] in 2 to 4 weeks to undergo stenting of RCA. Cardiac meds: Aspirin 81 mg p.o. daily Atorvastatin 40 mg p.o. daily Effient 10 mg p.o. daily
--- NOTE | 2025-08-26 10:50 | SW/DCPLANNER ---
Phoned patient x2. Left message with name and a call back number each time. Tonia Begum
--- NOTE | 2025-08-29 15:26 | EXP.DC.SUM ---
General Admission date:: 08/22/25 Discharge date: 08/24/25 HPI HPI HPI: Mr. Rosales is a 70-year-old male with history of hypertension but no longer needing meds due to improvement in blood pressure after retiring. States he otherwise only takes a daily aspirin. Says approximately 2 PM this afternoon he developed onset of chest pressure, shortness of breath, pain in both his arms radiating down his arms. Became nauseous and developed flushing and felt really hot and sweaty. Came to the ER for evaluation where EKG obtained showed acute STEMI. Labs obtained but [facility] urgently activated. Taken to [facility] for intervention. Found to have occlusion of ostial circumflex. Received 3 stents. Medicine consulted for admission Reports improvement in chest pain after intervention. Stable on room air. Blood pressure doing better with systolics in the 120s to 140s. Family at bedside. Hospital Course Hospital Course Hospital Course: On arrival to [facility] patient was taken urgently to the [facility] for STEMI. He was found to have occluded circumflex. Stents were placed. He did feel better after the procedure but required admission. The following day patient did feel much better. He denied having any chest pain and shortness of breath. He had low potassium and sodium. He was felt to have had a run of an arrhythmia during the night and did not tolerate an amiodarone drip. He had no further arrhythmia after this. He was started on p.o. potassium after which his numbers normalized. TSH was elevated and he was started on low-dose levothyroxine. He was followed by cardiology during the admission. With the following note: Plan Coronary artery disease Status post STEMI Status post thrombectomy and 3 TRESA to ostial proximal mid dominant circumflex artery with additional stenting into a large second obtuse marginal artery. Persistent severe stenosis in large right coronary artery is present. Patient will need to return to the [facility] in 2 to 4 weeks and undergo stenting of the right coronary artery. Echo pending Continue DAPT therapy with Effient and aspirin LDL goal less than 55, LDL is 103. Start high-dose statin A1c is 5.4 Patient is a non-smoker CV summary 08/23/2025: Patient will need to be monitored for 48 hours status post STEMI. Echo is pending. Patient can be moved to [facility] with telemetry after echo report. On 08/24/2025 patient was clinically stable. He was discharged home to follow-up with Dr. Allen and scheduled to follow-up with cardiology on 09/07/2025. Exam Data for Last 24 hours Vital signs and Labs for Last 24 Hours: Temp Pulse Resp BP Pulse Ox O2 Del Method O2 Flow Rate 98 F 69 16 129/68 99 Room Air 3 08/24/25 08:00 08/24/25 08:00 08/24/25 08:00 08/24/25 08:00 08/24/25 08:00 08/24/25 08:00 08/23/25 13:00 Narrative: [facility] PE 08/24/2025 Constitutional: Present no acute distress Respiratory: Present CTA bilaterally Cardiac: Present Reg Rate and Rhythm GI: Present soft; Absent distention or tenderness Extremities: Absent edema Skin: Present intact Neuro: Present alert, awake and oriented x 3 Results Data Completed and Pending Completed studies during hospitalization [Text1]: 08/23/2025 ECHO Conclusion Normal biventricular systolic function. Mild RV dilation. Mild biatrial dilation. Mild MR, mild TR. 08/22/2025 CXR IMPRESSION: No acute cardiopulmonary process 08/22/2025 cardiac cath IMPRESSION Acute inferolateral ST elevation myocardial infarction as described above Successful mechanical thrombectomy followed by drug-eluting stent deployment to the ostial proximal mid dominant circumflex artery with additional stenting into a large second obtuse marginal artery Persistent severe stenosis in the large right coronary artery with an anterior takeoff Reduced ejection fraction Elevated LVEDP PLAN 1. Effient and aspirin 2. LDL less than 55 to be achieved with high intensity statin 3. Maintain continuous telemetry for at least 48 hours 4. Official echocardiogram in the morning and usage of LifeVest if applicable 5. Patient will be brought back to the [facility] in 2 to 4 weeks and undergo stenting of the right coronary artery. 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 Entresto once hemodynamically stable DS: Diagnosis Discharge Diagnosis (1) STEMI (ST elevation myocardial infarction): Status: Acute Code(s): I21.3 - ST elevation (STEMI) myocardial infarction of unspecified site (2) Hypokalemia: Status: Resolved Code(s): E87.6 - Hypokalemia (3) Hypothyroidism: Status: Acute Code(s): E03.9 - Hypothyroidism, unspecified (4) Stented coronary artery: Status: Acute Code(s): Z95.5 - Presence of coronary angioplasty implant and graft (5) Cardiac dysrhythmia: Status: Inactive Code(s): I49.9 - Cardiac arrhythmia, unspecified Meds Home Medications and Allergies Home Medications ?Medication ?Instructions ?Recorded ?Confirmed ?Type aspirin 81 mg tablet 81 mg PO DAILY 08/23/25 08/23/25 History atorvastatin 40 mg tablet 40 mg PO HS #30 tabs 08/24/25 Rx levothyroxine 25 mcg tablet 25 mcg PO DAILY #30 tabs 08/24/25 Rx (Levoxyl) prasugrel HCl 10 mg tablet 10 mg PO DAILY #30 tabs 08/24/25 Rx New Prescriptions to Start Prescriptions: atorvastatin Pia Allen levothyroxine [Levoxyl] Pia Allen prasugrel HCl Pia Allen Allergies Allergy/AdvReac Type Severity Reaction Status Date / Time sulfamethoxazole (From Allergy Hives Verified 08/23/25 07:27 Bactrim) trimethoprim (From Bactrim) Allergy Hives Verified 08/23/25 07:27 Discharge Plan Disposition Patient Disposition: Home, Self-Care Discharge Order Discharge Orders: Discharge Order (Routine); Ordered 08/24/25 Ordered By: Pia Allen Follow up Plan Follow up with: Pia Allen MD [Primary Care Provider, Medical] - 08/29/25 2:45 pm Roberto Pedroza MD [Staff Physician, Cardiology] - 09/07/25 11:15 am Prescriptions/Medication Reconciliation: New atorvastatin 40 mg Tablet 40 mg PO HS Qty: 30 4RF prasugrel HCl 10 mg Tablet 10 mg PO DAILY Qty: 30 4RF levothyroxine [Levoxyl] 25 mcg tablet 25 mcg PO DAILY Qty: 30 3RF Continued aspirin 81 mg Tablet 81 mg PO DAILY Problem Reconciliation Problems Reviewed?: Yes Patient Discharge Instructions ACTIVITY: Limited activity DIET: low fat, low cholesterol Patient Instructions: Heart Attack, Cardiac Catheterization, Surgical Site Infection, Cardiology Catheterization Patient / Family Discharge Instructions Print Language: Romansh Providers Primary Care Provider: Pia Allen Admit Provider: Danny Alberts Attending Provider: Pia Allen
== END 2025-08-24 12:30 | disposition home or self-care (01) | DRG 360 ==
LOC: ER 17:12 → CATHLAB 17:12 → 2ND 18:08 → ICU 08-23 01:39 → 2ND 08-23 07:43 → ICU 08-23 09:51 → 2ND 08-23 17:56
PROVIDERS: Internal Medicine; Physician Assistant; Admitting Provider Internal Medicine Adolescent Medicine; Emergency Provider Student in an Organized Health Care Education/Training Program; PCP Family Medicine; Visit Provider Family Medicine
PROC: 4A023N7 Measurement of Cardiac Sampling and Pressure, Left Heart, Percutaneous Approach (ICD-10-PCS; CPT 93452; principal; 2025-08-22 17:00)
DX: I21.19 ST elevation (STEMI) myocardial infarction involving other coronary artery of inferior wall (principal); E87.6 Hypokalemia; E03.9 Hypothyroidism, unspecified; I49.9 Cardiac arrhythmia, unspecified; I08.1 Rheumatic disorders of both mitral and tricuspid valves; I25.10 Atherosclerotic heart disease of native coronary artery without angina pectoris; I10 Essential (primary) hypertension; E78.5 Hyperlipidemia, unspecified; Z87.891 Personal history of nicotine dependence; Z88.1 Allergy status to other antibiotic agents; Z88.2 Allergy status to sulfonamides
CPT/HCPCS: 36415; 71045; 80053; 80061; 83036; 83735; 84443; 84484; 85025; 86803; 87081; 87389; 93005; 93306; 99152; 99153; 99285; C1725; C1769; C1874; J0282; J1644; J1650; J2003; J2250; J3010; J7060; Q9967

== ENCOUNTER 2025-09-22 09:08 | Day surgery (SDC) | payer MEDICARE, SELFPAY ==
[2025-09-22] VITALS (13 sets, daily range): BP systolic 120–157; BP diastolic 56–100; PULSE 60–80; O2SAT 95–100; BMI 27.2
--- NOTE | 2025-09-22 07:22 | IR_ITS ---
APPROVED REPORT Patient Location: Outpatient Rn Informatics: Papito Quiñones, RT (R) PROCEDURES Drug-eluting stent deployment to the proximal and mid dominant right coronary artery INDICATION Recent ST elevation myocardial infarction, Staged coronary artery revascularization due to chronic renal failure, Coronary artery disease Informed consent was obtained prior to the procedure. COMPLICATIONS None Estimated Blood Loss: Less than 10 mls TECHNIQUE One percent lidocaine used to anesthetize the right anterior aspect of the wrist. The right radial artery was accessed via the Seldinger technique. A 6 [place] sheath was placed in the right radial artery. 2.5 mg of Verapamil, 800 mcg of nitroglycerin, 1mg Lidocaine and therapeutic U Heparin were given through the arterial sheath. Therapeutic ACT was achieved. An AR-2 guide catheter was placed in the right coronary artery followed by Choice PT extra-support wire placed distally. A telescope guide liner was advanced over the wire and placed in the right coronary artery. A 4 mm x 38 mm [place] frontier stent was placed in the proximal to mid right coronary artery at 18 kai. An additional 4 mm x 18 mm [place] frontier stent was placed distal to the for stent at still overlapping and deployed at 18 kai. The severe stenosis was reduced to 0% AMBREEN-3 flow was present before and after the procedure. At the end the procedure the apparatus was removed the sheath was removed good hemostasis was achieved using TR banding patient was transferred to the postop holding in stable condition IMPRESSION Successful drug-eluting stenting of the proximal and mid dominant right coronary artery severe disease reduced to 0% with 2 contiguous drug-eluting stents PLAN 1. Dual antiplatelet therapy 2. Standard therapy for ischemic heart disease 3. Cardiac rehabilitation 4. Avoidance of tobacco products 5. LDL less than 55 to be achieved with high intensity statin Electronically signed by : Roberto Pedroza MD 09/22/2025 12:09:08
[2025-09-22 09:34] LABS: Hematocrit 39.6 % (42.0-52.0); Hemoglobin 14.1 g/dL (14.1-18.0); Immature Granulocytes % 0 %; Mean Corpuscular HGB Conc 35.6 g/dL (31.8-35.4); Mean Corpuscular Hemoglobin 31.1 pg (27.0-31.2); Mean Corpuscular Volume 87.4 fl (80-94); Nucleated Red Blood Cells % 0 %; Platelet Count 261 K/mm3 (142-424); Red Blood Count 4.53 M/mm3 (4.60-6.20); Red Cell Distribution Width-SD 39.7 fL; White Blood Count 5.5 K/mm3 (4.8-10.8)
[2025-09-22 09:39] LABS: Chloride 101 mmol/L (98-107)
[2025-09-22 09:40] LABS: Potassium 3.9 mmoL/L (3.5-5.1); Sodium 133 mmol/L (136-145)
[2025-09-22 09:43] LABS: Anion Gap 7.9 mEq/L (5-15); Blood Urea Nitrogen 21 mg/dl (9-20); Calcium 9.2 mg/dl (8.4-10.2); Carbon Dioxide 28 mmol/L (22.0-30.0); Creatinine Clearance Estimated 66 mL/min (50-200); Creatinine,Serum 1.30 mg/dl (0.66-1.25); Estimated Glomerular Filt Rate 54 ml/min (>60); GFR (African American) 66 ML/MIN (>60); Glucose 111 mg/dl (74-100)
[2025-09-22] MEDS: HEPARIN 1,000 UNITS/500ML NS (CATH LAB) 3000 UNIT IV (10:54)
[2025-09-22] MEDS: HEPARIN 1,000 UNITS/ML 10ML VIAL (CATH LAB) 5000 UNIT IV (10:54)
[2025-09-22] MEDS: VERAPAMIL 2.5MG/ML 2ML VIAL 2.5 MG IV (10:55)
[2025-09-22] MEDS: LIDOCAINE 1% 10ML MDV 10 ML IJ (10:55)
[2025-09-22] MEDS: 0.9 % SODIUM CHLORIDE 500 ML 25 ML IV (10:55)
[2025-09-22] MEDS: NITROGLYCERIN 800MCG/8ML SYR (CATH LAB) 800 MCG IA (10:56)
[2025-09-22] MEDS: FENTANYL 100MCG/2ML VIAL 50 MCG IV (10:56)
[2025-09-22] MEDS: MIDAZOLAM HCL 1MG/ML 5ML VIAL 1 MG IV (10:56)
--- NOTE | 2025-09-22 12:00 | SUR.PHASEII ---
No beta jb per MD
--- NOTE | 2025-09-23 11:54 | PC.NURSE ---
09/23/2025 pt called 2 times. Pt does not have voice mail.
== END 2025-09-22 15:06 | disposition home or self-care (01) ==
LOC: CATHLAB 09:09
PROVIDERS: PCP Family Medicine; Visit Provider Internal Medicine
PROC: 02703DZ Dilation of Coronary Artery, One Artery with Intraluminal Device, Percutaneous Approach (ICD-10-PCS; CPT 92928; principal; 2025-09-22 09:45)
PROC: 4A023N7 Measurement of Cardiac Sampling and Pressure, Left Heart, Percutaneous Approach (ICD-10-PCS; CPT 93452; 2025-09-22 09:45)
DX: I25.10 Atherosclerotic heart disease of native coronary artery without angina pectoris (principal); I25.2 Old myocardial infarction; N18.9 Chronic kidney disease, unspecified; E78.5 Hyperlipidemia, unspecified; E03.9 Hypothyroidism, unspecified; Z87.891 Personal history of nicotine dependence; Z79.02 Long term (current) use of antithrombotics/antiplatelets; Z95.5 Presence of coronary angioplasty implant and graft; Z79.82 Long term (current) use of aspirin; Z79.890 Hormone replacement therapy; Z79.899 Other long term (current) drug therapy; Z88.1 Allergy status to other antibiotic agents; Z88.2 Allergy status to sulfonamides
CPT/HCPCS: 80048; 85025; 85347; 92928; 92941; 99152; C1725; C1769; C1874; C1887; C9600; C9606; J1200; J1644; J3010; J7040; Q9967

== ENCOUNTER 2025-09-26 12:45 | Outpatient (CLI) | payer MEDICARE, SELFPAY ==
--- OUTSIDE RECORDS SUMMARY | 2025-08-23 06:15 | XMS_ITS ---
Author Organization [facility] Address [address] [place] [id number] Care Team Providers Care [facility] Name Role Phone Mahesh Allen Primary Care Provider [phone] Frank Ivan [phone] Allergies Allergen (clinical drug ingredient) Drug/Non Drug Allergy documented on EMR Reaction Allergy Type Onset Date Status sulfamethoxazole / trimethoprim Bactrim hives and swollen throat Drug Allergy Active REASON FOR VISIT check up, not feeling well, weak, chest hurts Encounters Encounter Location Date Provider Diagnosis [facility] [address] [place] [id number] 08/23/2025 Frank Ivan Plan Of Treatment Next Appt Details Provider Name:Mahesh Winters er, 09/26/2025 01:15:00 PM, [address], [address], [place], [id number], Progress Notes * Papito ROSALESDOB: [birth year] (70 yo M)Acc No.[id number]:08/23/2025 Progress Notes Patient: Papito MCINTOSH Provider: Frank Ivan M.D. :1955 A ge:70 Y S ex:Male Date:08/23/2025 Address:[address], [place], [id number] Pcp:Mahesh Allen Subjective: * Chief Complaints: * 1 . Check up, not feeling well, weak, chest hurts. * ROS: D ERMATOLOGY: no R miriam. n o H baljit. G ASTROENTEROLOGY: no N ausea. n o V omiting. n o D iarrhea.? U ROLOGY: no D ifficulty urinating. n o B lood in urine. * Medical History: A llergies, Hypertension. 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 * Hospitalization/Major Diagno stic Procedure: p neumonia , [facility] ER-low back pain 01/15, [facility] ER 01/30/15. * Family History: F ather: , lung cancer. M other: alive, stroke, lymphoma. 3 brother(s) . 2 son(s) , 1 daughter(s) - healthy. . 1 sister , unsure what she from. * Social History: C URRENT TOBACCO USE S moking Status: Patient does NOT smoke. C affeine: yes, frequency:coffee, pop, qd. Home smoke detector use: yes. Marital Status: . Past smoking status: no. Alcohol: Yes, Type: , Frequency: ,Years: , Determination:, rare. Sexually active: yes. * Allergies: B actrim: hives and swollen throat. Objective: * Vitals: Assessment: Plan: * Treatment: * Images: Billing Information: * Visit Code: * Procedure Codes: * Electronic signature of Frank Ivan MD on 09/26/2025 at 12:47 PM EST Sign off status: Pending * Provider: Frank Ivan M.D. Date: 10/23/2024 Generated for Roberta hoang/Ted/Ryleeitting on: 11/27/2024 12:47 PM EST
--- OUTSIDE RECORDS SUMMARY | 2025-08-29 09:45 | XMS_ITS ---
Author Organization [facility] Address [address] [facility] [address] [place] [id number] Care Team Providers [facility] Aide Name Role Phone Mahesh Allen Primary Care Provider [phone] Allergies Allergen (clinical drug ingredient) Drug/Non Drug Allergy documented on EMR Reaction Allergy Type Onset Date Status sulfamethoxazole / trimethoprim Bactrim hives and swollen throat Drug Allergy Active REASON FOR VISIT [facility] f/u Medications Medication SIG (Take, Route, Frequency, Duration) Notes Start Date End Date Status Aspirin 81 MG 1 tablet Orally Once a day Active Effient 10 MG as directed Orally Active Zinc 50MG 1 TAB QD *Please review a nd pick correct strength-formulati on from Medispan options. If intended option is not shown, discontinue and re-order from Quick Search* Active Atorvastatin Calcium 40 MG 1 tablet Orally Once a day Active Diovan HCT 160-12.5 MG 1 tab(s) orally once a day Not-Taking Vital Signs Weight 202 lbs 08/29/2025 Blood pressure systolic 128 mm Hg 08/29/20 25 Blood pressure diastolic 70 mm Hg 025 Heart Rate 65 /min 08/29/2025 Height 72 in 08/29/2025 BMI 27.39 kg/m2 08/29/2025 Encounters Encounter Location Date Provider Diagnosis [facility] [address] [facility] [address] [place] [phone] 08/29/[address] elevation myocardial infarction involving left circumflex coronary artery I21.21 and Stented coronary artery Z95.5 Assessments Encounter Date Diagnosis (ICD Code) Assessment Notes Treatment Notes Treatment Clinical Notes Section Notes 08/29/2025 ST elevation myocardial infarction involving left circumflex coronary artery (ICD-10 - I21.21) 08/29/2025 Stented coronary artery (ICD-10 - Z95.5) continue present care Plan Of Treatment Treatment Notes Assessment Notes Stented coronary artery continue present care Next Appt Details Follow Up: 4 Weeks, Reason: Provider Name:Mahesh Winters er, 09/26/2025 01:15:00 PM, [address] [facility] [address], [address], [place], [place], [id number], Progress Notes * Papito ROSALESDOB: [birth year] (70 yo M)Acc No.[id number]:08/29/2025 Progress Notes Patient: Papito MCINTOSH Provider: Mahesh Allen M.D. :1955 A ge:70 Y S ex:Male Date:08/29/2025 Address:[address] [place], [place] [id number] Subjective: * Chief Complaints: * 1 . [facility] f/u. * HPI: H PI: 70 year old male presents with c/o Here for follow up on: H ospitalization. Pt is here for a follow-up on [facility] discharge, STEMI and stent placements. See pt docs. Pt states he is doing better since he was discharged. Has appt Cardiology 09/07/25.? Subsequent stenting of the Right Coronary Artery.. * ROS: C ONSTITUTIONAL: Positive for A alemher physician seen since last visit?, no?Change in medication since last visit?,yes Are you taking antibiotics?,no Are you taking steroids?no . D ERMATOLOGY: no R miriam. n o H baljit. G ASTROENTEROLOGY: no N ausea. n o V omiting. n o D iarrhea.? U ROLOGY: no D ifficulty urinating. n o B lood in urine. * Medical History: A llergies, Hypertension, STEMI with cath and stent placement 08/22/25, [facility]. 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 * Hospitalization/Major Diagno stic Procedure: p ramesh , [facility] ER-low back pain 01/15, [facility] ER 01/30/15. * Family History: F [...] , Determination:, rare. Sexually active: yes. * Medications: T aking Effient 10 MG Tablet as directed Orally , Taking Aspirin 81 MG Tablet Delayed Release 1 tablet Orally Once a day , Taking Atorvastatin Calcium 40 MG Tablet 1 tablet Orally Once a day , Taking Zinc 50MG 1 TAB QD , Notes to Pharmacist: *Please review and pick correct strength-formulation from [facility] [employer] options. If intended option is not shown, discontinue and re-order from Quick Search*, Not-Taking Diovan HCT 160-12.5 MG Tablet 1 tab(s) orally once a day , Medication List reviewed and reconciled with the patient * Allergies: B actrim: hives and swollen throat. Objective: * Vitals: W t: 202, Temp: 97.9, BP: 128/70, HR: 65, Nurse: pe, Ht: 72, BMI:27.39. * Examination: G eneral Examination: General Appearance: N AD. H EENT: u nremarkable.?Oral cavity: n o lesions, mucosa moist and WNL, no erythema. N kenneth: s upple, no lymphadenopathy. C hest: n ormal shape and expansion. H eart: R SR, S4. L ungs: c lear to auscultation. A bdomen: s oft and nontender. N eurologic Exam: I ntact, gait normal. S kin: n ormal, no rash. P eripheral pulses: n ormal (2+) bilaterally.?Extremities: M inimal leg edema. Assessment: * Assessment: 1. S T elevation myocardial infarction involving left circumflex coronary artery - I21.21 (Primary) 2 . S tented coronary artery - Z95.5 Plan: * Treatment: * Procedure Codes: G 2211 Complex e/m visit add on, G8783 BP SCR PRFRM RCMDD DEFIND SCR INTVL, G8752 MOST RECENT SYSTOLIC BP < 140MM HG, G8754 MOST RECENT DIASTOLIC BP < 90MM HG, 3074F SYST BP LT 130 MM HG, 3078F DIAST BP < 80 MM HG * Follow Up: 4 Weeks * Images: Billing Information: * Visit Code: 97655 Office Visit, Est Pt., Level 3. * Procedure Codes: G2211 Complex e/m visit add on. G8783 BP SCR PRFRM RCMDD DEFIND SCR INTVL. G8752 MOST RECENT SYSTOLIC BP < 140MM HG. G8754 MOST RECENT DIASTOLIC BP < 90MM HG. 3074F SYST BP LT 130 MM HG. 3078F DIAST BP < 80 MM HG. * Electronic signature of Mahesh Allen MD on 09/26/2025 at 12:47 PM EST Sign off status: Pending * Provider: Mahesh Allen M.D. Date: 10/29/2024 Generated for Roberta hoang/Ted/eTransmitting on: 11/27/2024 12:47 PM EST History and Physical Notes * HPI (History of Present Illness) Category Sub-Category Detail Notes Category Not es HPI Here for follow up on: [facility]. Pt is here for a follow-up on [facility] discharge, STEMI and stent placements. See pt docs. Pt states he is doing better since he was discharged. Has appt Cardiology 09/07/25. Subsequent stenting of the Right Coronary Artery. Examination Category Sub-Category Detail Notes Category Not es General Examination HEENT: unremarkable Heart: RSR, S4 Lungs: clear to auscultatio n Abdomen: soft and nontender Extremities: Minimal leg edema General Appearance: NAD Skin: normal, no rash Neurologic Exam: Intact, gait normal Neck: supple, no lymphaden opathy Oral cavity: no lesions, mucosa m oist and WNL, no erythema Peripheral pulses: normal (2+) bilatera lly Chest: normal shape and exp ansion
--- OUTSIDE RECORDS SUMMARY | 2025-09-26 12:48 | XMS_ITS | Patient Health Record ---
Author Organization [facility] Address [address] [facility] [address] [place] [id number] Care Team Providers Care [employer]isher Name Role Phone Mahesh Allen Primary Care Provider Frank Ivan [phone] Allergies Allergen (clinical drug ingredient) Drug/Non Drug Allergy documented on EMR Reaction Allergy Type Onset Date Status sulfamethoxazole / trimethoprim Bactrim hives and swollen throat Drug Allergy Active Results Component Value Reference Range Notes H-CBC Reviewed date:08/24/2025 12:58:25 PM Interpretation: Performing Lab: Notes/Report: WBC 7.7 4.8-10.8 K/mm3 RBC 4.79 4.60-6.20 M/mm3 HGB 15.0 14.1-18.0 g/dL HCT 42.2 42.0-52.0 % MCV 88.1 80-94 fl MCH 31.3 27.0-31.2 pg MCHC 35.5 31.8-35.4 g/dL RDW-SD 40.2 RDW 12.5 11.5-17.5 % PLT 318 142-424 K/mm3 MPV 8.4 7.4-10.4 fl NE% 68.7 37.0-80.0 % LY% 24.1 10-50 % MO% 4.8 1.7-9.3 % EO% 1.6 0.1-12.0 % BA% 0.5 0.1-2.0 % NRBC% 0 IG% 0.3 NE# 5.3 1.8-7.8 K/mm3 LY# 1.9 0.7-4.5 K/mm3 MO# 0.4 0.1-1.0 K/mm3 EO# 0.1 0.0-0.4 Kmm3 BA# 0.0 0-0.2 K/mm3 NRBC# 0 IG# 0.02 H-CMP Reviewed date:08/24/2025 12:58:25 PM Interpretation: Performing Lab: Notes/Report: NA 132 136-145 mmol/L K 3.8 3.5-5.1 mmoL/L CL 98 98-107 mmol/L CO2 27 22.0-30.0 mmol/L GAP 10.8 5-15 mEq/L BUN 10 9-20 mg/dl CREATT 1.10 0.66-1.25 mg/dl Delta: 0.90 on 08/23/25-454 CRCLE 79 50-200 mL/min GFRAA 80 >60 ML/MIN EGFR 66 >60 ml/min GLU 173 74-100 mg/dl CA 9.5 8.4-10.2 mg/dl BILIT 0.9 0.2-1.3 mg/dl AST 80 17-59 U/L ALT 30 12-78 U/L TP 6.9 6.3-8.2 g/dl ALB 4.6 3.5-5.0 g/dl Delta: 3.9 on 1 10/23/24-454 GLOB 2.3 1.3-3.2 g/dL AGRATIO 2.0 1.1-1.8 ALP 79 38-126 U/L Reason For Referral No Information Medications Medication SIG (Take, Route, Frequency, Duration) Notes Start Date End Date Status Aspirin 81 MG 1 tablet Orally Once a day Active Effient 10 MG as directed Orally Active Zinc 50MG 1 TAB QD *Please review a nd pick correct strength-formulati on from Subitec options. If intended option is not shown, discontinue and re-order from Quick Search* Active Atorvastatin Calcium 40 MG 1 tablet Orally Once a day Active Diovan HCT 160-12.5 MG 1 tab(s) orally once a day Not-Taking Immunizations Vaccine Route Administration Date Status Comme nts Tetanus Tdap-Adacel (over 7yrs) IM Intramuscular 02/12/2018 Administered COVID 19 Martina Unknown 12/13/2020 Administered Problems Problem Type SNOMED Code ICD Code Onset Dates Problem Status W/U Status Risk Notes Problem Essential hypertension (35930905) Essential hypertension (I10) Active confirmed Problem Anxiety state (643192185) Anxiety state (F41.1) Active confirmed Problem Mixed hyperlipidemia (345298985) Mixed hyperlipidemia (E78.2) Active confirmed Problem Primary insomnia (9051202) Primary insomnia (F51.01) Active confirmed Problem Restless legs syndrome (78725386) Restless legs syndrome (G25.81) Active confirmed Problem Acquired hypothyroidism (312325960) Acquired hypothyroidism (E03.9) Active confirmed Problem STEMI - ST elevation myocardial infarction (777572784) ST elevation myocardial infarction (STEMI), unspecified artery (I21.3) Active confirmed Problem Stented coronary artery (004879032) Stented coronary artery (Z95.5) Active confirmed Problem Benign prostatic hypertrophy without outflow obstruction (723238163) Benign prostatic hyperplasia without lower urinary tract symptoms (N40.0) Active confirmed Problem 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 Vital Signs Heart Rate 65 /min 08/29/2025 Blood pressure diastolic 70 mm Hg 08/29/2025 Height 72 in 08/29/2025 Blood pressure systolic 128 mm Hg 08/29/2025 Weight 202 lbs 08/29/2025 BMI 27.39 kg/m2 08/29/2025 Encounters Encounter Location Date Provider Diagnosis [facility] [address] [facility] [address] [place], [place] [id number] 08/29/[address] elevation myocardial infarction involving left circumflex coronary artery I21.21 and Stented coronary artery Z95.5 Assessments Encounter Date Diagnosis (ICD Code) Assessment Notes Treatment Notes Treatment Clinical Notes Section Notes 08/29/2025 Stented coronary artery (ICD-10 - Z95.5) continue present care 08/29/2025 ST elevation myocardial infarction involving left circumflex coronary artery (ICD-10 - I21.21) Plan Of Treatment Pending Test Test Name Order Date H-TSH 11/07/2021 H-CBC 11/07/2021 H-CMP 11/07/2021 Next Appt Details Provider Name:Mahesh Winters er, 09/26/2025 01:15:00 PM, [address], [address], [place], [id number], Insurance Providers Payer Name Payer Address Payer Phone Subscriber Number Group Number Insured Name Patient Relationship to Insured Coverage Start Date Coverage End Date MEDICARE PART B [address] [address] [place] [id number] [phone] [id number] Bobby Papito Self - patient is the insured [employer] (MEDICARE) [address] [address] [place] [address] [id number] Papito Rosales Self - patient is the insured Medical (General) History Medical History History ICD Code allergies hypertension STEMI with cath and stent placement 08/06 04/29, [facility] Surgical History Surgery Date(Month/Year) none upper thigh, sarcoma, done at [facility] in [place] 12-06-14 Hospitalization History Reason Date(Month/Year) [facility] ER 01/30/15 [facility] ER-low back pain 01/15 pneumonia
[2025-09-26 13:29] LABS: Hematocrit 38.8 % (42.0-52.0); Hemoglobin 13.7 g/dL (14.1-18.0); Immature Granulocytes % 0 %; Mean Corpuscular HGB Conc 35.3 g/dL (31.8-35.4); Mean Corpuscular Hemoglobin 31.4 pg (27.0-31.2); Mean Corpuscular Volume 88.8 fl (80-94); Nucleated Red Blood Cells % 0 %; Platelet Count 301 K/mm3 (142-424); Red Blood Count 4.37 M/mm3 (4.60-6.20); Red Cell Distribution Width-SD 41.1 fL; White Blood Count 5.8 K/mm3 (4.8-10.8)
[2025-09-26 14:22] LABS: Anion Gap 10.8 mEq/L (5-15); Blood Urea Nitrogen 19 mg/dl (9-20); Calcium 9.3 mg/dl (8.4-10.2); Carbon Dioxide 29 mmol/L (22.0-30.0); Chloride 102 mmol/L (98-107); Creatinine,Serum 1.00 mg/dl (0.66-1.25); Estimated Glomerular Filt Rate 73 ml/min (>60); GFR (African American) 89 ML/MIN (>60); Glucose 93 mg/dl (74-100); Potassium 3.8 mmoL/L (3.5-5.1); Sodium 138 mmol/L (136-145)
== END 2025-09-26 23:59 | disposition home or self-care (01) ==
LOC: LAB 12:45
PROVIDERS: PCP Family Medicine; Visit Provider Internal Medicine
DX: I25.10 Atherosclerotic heart disease of native coronary artery without angina pectoris (principal)
CPT/HCPCS: 36415; 80048; 85025